=== PATIENT | female | born 1980 | race Caucasian/White ===

== ENCOUNTER 2020-07-12 13:58 | Emergency (ER) | payer BC, SELFPAY ==
[2020-07-12] MEDS ORDERED: traMADol HCl 50 MG TAB ONE (14:37)
[2020-07-12] MEDS ORDERED: Ibuprofen 800 MG TAB ONE (14:37)
== END 2020-07-12 15:01 | disposition home or self-care (01) ==
LOC: BURERS 13:58
DX: S80.01XA Contusion of right knee, initial encounter (principal); W22.8XXA Striking against or struck by other objects, initial encounter